=== PATIENT | female | born 1965 | race Two or more races ===

== ENCOUNTER 2019-01-27 18:47 | Emergency (ER) | payer SELFPAY ==
[~2019-01-27] VITALS: Ht 157.5 cm; Wt 55.0 kg
[2019-01-27 20:21] LABS: EOSINOPHILS % 2.5 % (0.0-5.0); HEMATOCRIT. 41.3 % (36.0-48.0); HEMOGLOBIN. 13.6 g/dL (12.0-16.0); LYMPHOCYTES % 47.4 % (20.0-50.0); MEAN CORPUSCULAR HEMOGLOBIN 30.8 pg (28.0-32.0); MEAN CORPUSCULAR VOLUME 93.8 fL (81.0-99.0); MEAN PLATELET VOLUME 8.2 fl (7.4-10.4); MONOCYTES % 5.5 % (2.0-8.0); NEUTROPHILS % 43.6 % (40.0-76.0); PLATELET 316 x1000/uL (130-400); RED BLOOD CELL COUNT 4.41 mill/uL (4.2-5.4); RED CELL DISTRIBUTION WIDTH 13.7 % (11.6-14.6)
[2019-01-27 20:27] LABS: CHLORIDE 106 mEq/L (98-107)
[2019-01-27 20:33] LABS: ETHANOL BLOOD < 10 mg/dL
[2019-01-27 20:39] LABS: CLARITY URINE CLEAR (CLEAR); COLOR URINE YELLOW (YELLOW); KETONES URINE NEGATIVE (NEGATIVE); LEUKOCYTE ESTERASE URINE NEGATIVE (NEGATIVE); NITRITE URINE NEGATIVE (NEGATIVE); OCCULT BLOOD URINE NEGATIVE (NEGATIVE); PROTEIN URINE NEGATIVE (NEGATIVE); SPECIFIC GRAVITY URINE 1.006 (1.005-1.030); UROBILINOGEN URINE 0.2 E.U./dL (0.2-1.0)
[2019-01-27 20:53] LABS: *AMPHETAMINES SCREEN URINE NEGATIVE (NEGATIVE); *BARBITURATES SCREEN URINE NEGATIVE (NEGATIVE); *BENZODIAZEPINES SCREEN URINE NEGATIVE (NEGATIVE)
[2019-01-27 20:54] LABS: *COCAINE SCREEN URINE NEGATIVE (NEGATIVE); CANNABINOID URINE SCREEN NEGATIVE (NEGATIVE); METHADONE URINE SCREEN NEGATIVE (NEGATIVE); OPIATES URINE SCREEN NEGATIVE (NEGATIVE); PHENCYCLIDINE URINE SCREEN NEGATIVE (NEGATIVE)
[2019-01-28] MEDS ORDERED: HALOPERIDOL LACTATE 5MG/ML VIAL IM STA (10:12)
[2019-01-28] MEDS ORDERED: DIPHENHYDRAMINE 50MG/ML VIAL IM STA (10:12)
[2019-01-28] MEDS ORDERED: LORAZEPAM 2MG/ML CPJ IV STA (10:12)
[2019-01-29 16:13] VITALS: BP 114/78
== END 2019-01-29 19:12 | disposition home or self-care (01) ==
LOC: ER 18:47
DX: R45.6 Violent behavior (principal); R45.1 Restlessness and agitation; E11.9 Type 2 diabetes mellitus without complications; F20.9 Schizophrenia, unspecified
CPT/HCPCS: 36415; 80053; 80305; 80320; 81003; 85025; 96372; 96374; 99284; J1200; J1630; J2060; G0480